=== PATIENT | female | born 1975 | race Caucasian/White ===

== ENCOUNTER → 2018-09-23 | Outpatient (CLI) | payer BC, OTHER | LOC: MRI 14:57 | DX: M48.02 Spinal stenosis, cervical region (principal); M25.78 Osteophyte, vertebrae; G89.29 Other chronic pain ==

== ENCOUNTER → 2018-09-30 | Outpatient (CLI) | payer BC, OTHER | LOC: MRI 09:26 | DX: G54.2 Cervical root disorders, not elsewhere classified (principal); M48.02 Spinal stenosis, cervical region ==

== ENCOUNTER → 2018-10-13 | Outpatient (CLI) | payer BC, OTHER | LOC: NUC 08:44 | DX: G54.2 Cervical root disorders, not elsewhere classified (principal) ==